=== PATIENT | male | born 1940 | race Caucasian/White ===

== ENCOUNTER 2017-09-18 13:35 | Inpatient (IN) ==
[2017-09-18] MEDS ORDERED: DUONEB NEB STA (13:40)
--- NOTE | 2017-09-18 13:56 | DI ---
EXAM: Two views of the chest. History: Cough, short of breath Findings: Heart size is upper limits of normal. Calcified granulomas seen within the thorax. Left lower lobe and lingular consolidation. No appreciable pleural fluid and no pneumothorax. No acute os seous abnormalities. Impression: Left lower lung pneumonia. Follow-up recommended.
--- NOTE | 2017-09-18 15:05 | ED.PDOC ---
General ED Provider: Dr. KATARZYNA JULIO Chief Complaint: Respiratory Complaint Stated Complaint: shortness of breath Time Seen by Physician: 13:39 Mode of Arrival: Walk-In Information Source: Patient Exam Limitations: No limitations Primary Care Provider: MELODY SHAW Nursing and Triage Documentation Reviewed and Agree: Yes Reviewed sepsis parameters & appropriate labs ordered?: Yes System Inflammatory Response Syndrome: Not Applicable Sepsis Protocol: For patient's 13 years and over: Temp is 96.8 and below OR 101 and greater Pulse >90 BPM Resp >20/minute Acutely Altered Mental Status Are patient's symptoms suggestive of a new infection, such as: -Pneumonia -Skin, Soft Tissue -Endocarditis -UTI -Bone, Joint Infection -Implantable Device -Acute Abdominal Infection -Wound Infection -Meningitis -Blood Stream Catheter Infection -Unknown Respiratory Complaint Exam - Respiratory Complaint/Exam Onset/Duration: 2 weeks Symptoms Are: Still present Timing: Intermittent Initial Severity: Moderate Current Severity: Mild Location: Nose, Throat, Chest Character: Reports: Non-productive cough, Dry cough Aggravating: Reports: Weather, Recumbent position Associated Signs and Symptoms: Reports: URI, Nasal congestion. Denies: Rapid breathing, Dyspnea, Fever, Chills, Chest pain, Pleuritic chest pain, Wheezing, Hemoptysis, Dizziness, Calf pain, Calf swelling, Edema, Hoarseness, Sinus discomfort, Vomiting, Sore throat, Weight loss, Decreased oral intake, Increased thirst, Increased appetite, Increased urination Related History: Reports: Similar episode History of Healthcare-Acquired Pneumonia: No Related Surgical History: Reports: None Pulmonary Embolism Risk Factors: Bedrest Cardiac Risk Factors: Reports: Elevated lipids (copd) Pseudomonas Risk Factors: Reports: Chronic Lung Disease Tuberculosis Risk Factors: Reports: Chronic Resp. Faliure Status Asthmaticus Risk Factors: Reports: None Home Oxygen Use: No Recent Stress Test: No Recent Echo/LV Function: No Current Antibiotic Use: No Current Asthma Medication Use: No Respiratory Distress: None Inadequate Respiratory Effort: No Dysphagia Present: No Stridor Present: No JVD Present: No Retractions: Not Present Diminished Breath Sounds: No Sinus Tenderness: None Grunting Respirations: No Kussmaul Respirations: No Differential Diagnoses: Pneumonia, Bronchitis, Lower Resp. Infection Review of Systems - Review Of Systems Constitutional: Reports: Chills, Malaise Eyes: Reports: No symptoms Ears, Nose, Mouth, Throat: Reports: No symptoms Respiratory: Reports: Cough, Short of air Cardiac: Reports: No symptoms GI: Reports: No symptoms : Reports: No symptoms Musculoskeletal: Reports: No symptoms Skin: Reports: No symptoms Neurological: Reports: No symptoms Endocrine: Reports: No symptoms Hematologic/Lymphatic: Reports: No symptoms All Other Systems: Reviewed and Negative Past Medical History - Past Medical History Previously Healthy: Yes Endocrine: Reports: Dyslipidemia Cardiovascular: Reports: None Respiratory: Reports: COPD Hematological: Reports: None Gastrointestinal: Reports: None Genitourinary: Reports: None Neuro/Psych: Reports: None Musculoskeletal: Reports: None Cancer: Reports: None - Surgical History General Surgical History: Reports: None - Family History Family History: Reports: None - Social History Smoking Status: Current every day smoker, Light tobacco smoker Hx Substance Use: No Alcohol Screening: None Physical Exam - Physical Exam Appearance: Ill-appearing Ill-appearing: Mild Eyes: VINNIE, EOMI, Conjunctiva clear ENT: Ears normal, Nose normal, Oropharynx normal Respiratory: Rhonchi, Wheezes Cardiovascular: RRR, Pulses normal, No rub, No murmur GI/: Soft, Nontender, No masses, Bowel sounds normal, No Organomegaly Musculoskeletal: Normal strength, ROM intact, No edema, No calf tenderness Skin: Warm, Dry, Normal color Neurological: Sensation intact, Motor intact, Reflexes intact, Cranial nerves intact, Alert, Oriented Psychiatric: Affect appropriate, Mood appropriate Interpretation - Radiology Interpretation Radiology Interpretation By: Radiologist Exam Interpreted: Other (LLL PNEUMONIA) - Oracle Application Architect Rate: Normal Rhythm: Sinus Ectopy: None - EKG Interpretation Rate: Normal Rhythm: Sinus Ectopy: None Widener: NL ST Segment: Normal Re-Evaluation - Re-Evaluation Time of Re-Evaluation: 15:00 (NO ACUTE RESP EVENT WHILE IN THE ED ) Status: Unchanged Vital Signs Stable: Yes Pain Level: 0 Appearance: NAD Lungs: Clear (RIGHT LEFT RONCHI NOTED BASES) Skin: Warm and Dry Neuro: Alert and Oriented X3 CV: RRR Critical Care Note - Critical Care Note Total Time (mins): 0 Course - Course Hematology/Chemistry: 09/18/17 13:50 09/18/17 13:50 Orders, Labs, Meds: Lab Review 09/18/17 09/18/17 09/18/17 13:50 13:50 13:50 WBC 11.54 H RBC 5.17 Hgb 16.1 Hct 47.4 MCV 91.7 MCH 31.1 H MCHC 34.0 RDW Coeff of Shaniqua 13.4 Plt Count 263 Neutrophils % (Manual) 57.0 Lymphocytes % (Manual) 26.0 Monocytes % (Manual) 10.0 Eosinophils % (Manual) 7.0 H Plt Morphology Comment Normal Anisocytosis Not present RBC Morph Comment Normal Puncture Site L rad O2 Saturation 87.0 L ABG pH 7.432 ABG pCO2 40.0 ABG pO2 52.0 L* ABG HCO3 26.7 H ABG Total CO2 28 ABG Base Excess 2 Rico Test + FiO2 % 21.0 Sodium 141 Potassium 4.3 Chloride 105 Carbon Dioxide 28 Anion Gap 12.3 BUN 19 H Creatinine 0.79 Estimated GFR (MDRD) 96.00 BUN/Creatinine Ratio 24.05 Glucose 87 Calcium 9.5 Total Bilirubin 1.6 H AST 18 ALT 12 Alkaline Phosphatase 90 Total Creatine Kinase 54 Troponin I < 0.0100 Total Protein 7.6 Albumin 3.3 L Globulin 4.3 Albumin/Globulin Ratio 0.77 Orders Category Date Time Status ABG DRAW REQUEST Stat CARDIO 09/18/17 13:40 Ordered EKG-(ED ONLY) Stat CARDIO 09/18/17 13:41 Ordered NEBULIZER TREATMENT Stat CARDIO 09/18/17 13:41 Ordered ABG Stat LAB 09/18/17 13:40 Ordered BLOOD CULTURE (ED ONLY) Stat LAB 09/18/17 Ordered CBC W/ AUTO DIFF Stat LAB 09/18/17 13:39 Ordered COMPREHENSIVE METABOLIC PANEL Stat LAB 09/18/17 13:39 Ordered CREATINE KINASE Stat LAB 09/18/17 13:39 Ordered MANUAL DIFFERENTIAL Stat LAB 09/18/17 13:50 Completed TROPONIN I Stat LAB 09/18/17 13:39 Ordered Ipratropium/Albuterol Neb [Duoneb] MEDS 09/18/17 13:40 Stat 1 vial NEB ONCE STA CHEST, 2 VIEWS PA & LAT Stat RADS 09/18/17 13:39 Ordered Medications Discontinued Medications Generic Name Dose Route Start Last Admin Trade Name Freq PRN Reason Stop Dose Admin Albuterol/Ipratropium 1 vial 09/18/17 13:40 09/18/17 13:55 Duoneb NEB 09/18/17 13:41 1 vial ONCE STA Administration Vital Signs: Temp Pulse Resp BP Pulse Ox 09/18/17 13:36 98.2 F 93 H 28 H 155/65 H 85 L Departure - Departure Time of Disposition: 15:05 Disposition: ADMITTED INPATIENT Discharge Problem: Pneumonia Qualifiers: Pneumonia type: due to unspecified organism Laterality: left Lung location: lower lobe of lung Qualified Code(s): J18.1 - Lobar pneumonia, unspecified organism Instructions: Pneumonitis (ED) Condition: Good Pt referred to PMD for follow-up: Yes IPMP verified?: No Additional Instructions: Please call your Family Physician as soon as possible to schedule a follow-up appointment. Allergies/Adverse Reactions: Allergies No Known Allergies Allergy (Verified 09/18/17 13:41) Home Medications: Ambulatory Orders Aspirin [Aspirin Chewable] 81 mg PO DAILYWM 09/18/17 Fluticasone/Vilanterol [Breo Ellipta 200-25 Mcg INH] 1 each IH DAILY 09/18/17 Lovastatin [Mevacor] 20 mg PO BEDTIME 09/18/17 Disposition Discussed With: Patient, Family (REPORTS OF CHEST XRAY GIVEN LABS AND OTHER DATA SHARED WITH PT AND HIS PMD NOTIFIED 3:11 PM)
[2017-09-18] MEDS ORDERED: LEVAQUIN 500 MG in PREMIX 100 ML D5W 1 BAG IV SCH (15:30)
[2017-09-18] MEDS ORDERED: ROCEPHIN 1 GM in SODIUM CHLORIDE 50 ML IV STA (15:34)
[2017-09-18] MEDS ORDERED: ROCEPHIN ONE (15:36)
[2017-09-18] MEDS: ROCEPHIN 1 GM in SODIUM CHLORIDE 50 ML IV SCH (16:27)
[2017-09-18] MEDS: DOXY-100 100 MG in SODIUM CHLORIDE 100 ML IV SCH ×2 (17:27→22:03)
[2017-09-18] MEDS: SODIUM CHLORIDE 1,000 ML IV SCH (17:27)
[2017-09-18] MEDS: DUONEB NEB SCH ×2 (18:26→22:33)
[2017-09-18] MEDS: MEVACOR PO SCH (22:03)
[2017-09-19] MEDS: DUONEB NEB SCH ×4 (04:40→23:35)
[2017-09-19] MEDS: MUCINEX PO SCH ×4 (06:27→20:31)
[2017-09-19] MEDS: SOLU-MEDROL 40 MG IVP SCH ×3 (06:27→21:18)
[2017-09-19] MEDS: ASPIRIN CHEWABLE PO SCH (08:35)
[2017-09-19] MEDS: ROCEPHIN 1 GM in SODIUM CHLORIDE 50 ML IV SCH (08:35)
[2017-09-19] MEDS: DOXY-100 100 MG in SODIUM CHLORIDE 100 ML IV SCH ×2 (09:34→20:33)
[2017-09-19] MEDS: SODIUM CHLORIDE 1,000 ML IV SCH (12:41)
[2017-09-19] MEDS: MEVACOR PO SCH (20:32)
[2017-09-19] MEDS: UMECLIDINIUM BROMIDE INH SCH (20:33)
[2017-09-20] MEDS: SODIUM CHLORIDE 1,000 ML IV SCH ×2 (03:38→17:55)
[2017-09-20] MEDS: DUONEB NEB SCH ×4 (05:10→20:05)
[2017-09-20] MEDS: SOLU-MEDROL 40 MG IVP SCH ×3 (07:58→21:58)
[2017-09-20] MEDS: ROCEPHIN 1 GM in SODIUM CHLORIDE 50 ML IV SCH (08:44)
[2017-09-20] MEDS: ASPIRIN CHEWABLE PO SCH (08:44)
[2017-09-20] MEDS: MUCINEX PO SCH ×2 (08:44→20:19)
[2017-09-20] MEDS: DOXY-100 100 MG in SODIUM CHLORIDE 100 ML IV SCH ×2 (09:56→20:19)
[2017-09-20] MEDS: UMECLIDINIUM BROMIDE INH SCH (20:18)
[2017-09-20] MEDS: MEVACOR PO SCH (20:19)
[2017-09-21] MEDS: DUONEB NEB SCH ×3 (05:40→14:23)
[2017-09-21] MEDS: ASPIRIN CHEWABLE PO SCH (08:55)
[2017-09-21] MEDS: ROCEPHIN 1 GM in SODIUM CHLORIDE 50 ML IV SCH (08:55)
[2017-09-21] MEDS: MUCINEX PO SCH (08:55)
[2017-09-21] MEDS: SOLU-MEDROL 40 MG IVP SCH (08:56)
[2017-09-21] MEDS: DOXY-100 100 MG in SODIUM CHLORIDE 100 ML IV SCH (09:55)
--- NOTE | 2017-09-21 13:55 | DI ---
EXAM: Two views of the chest. History: Follow-up pneumonia Comparison: Chest radiograph 09/18/2017 Findings: Heart size is stable. Calcified granulomas again seen within the thorax. The left lower lung consolidation is stable to minimally improved. No developing opacities. Left hilar prominence again noted. No acute osseous abnormalities. No pneumothorax. Impression: Left lower lung pneumonia is stable to minimally improved. Continued follow-up is recom mended.
--- NOTE | 2017-09-21 17:01 | CT ---
EXAM: CT chest without contrast. HISTORY: Cough, shortness of breath. COMPARISON: Radiograph earlier the same day. TECHNIQUE: Multiple axial images of the chest were obtained without intravenous contrast. Images we re reformatted in the sagittal and coronal planes. FINDINGS: Evaluation for lymphadenopathy is limited by lack of intravenous contrast. Subcarinal lym ph node measures up to 2.9 cm short axis on axial image 31. Left hilar soft tissue mass extends into the anterior left upper lobe and AP window with overall mass measuring approximately 12.3 x 6.2 cm o n axial image 29. This causes some slight mass effect on the trachea at the level of the jerzy, alt anish no endobronchial extension identified. Consolidation extends into the lingula A discrete 0.6 c m right lower lobe nodule noted on axial image 42. Mild dependent subsegmental atelectasis seen in t he posterior right lower lobe near the diaphragm. Severe emphysematous changes present. No pleural e ffusion or pneumothorax identified. Heart size is normal. Atherosclerotic calcifications present. No pericardial effusion identified. Limited images of the upper abdomen demonstrate no acute finding. No osteolytic or osteoblastic lesi ons seen. Degenerative changes present in the spine IMPRESSION: 1. Large left hilar soft tissue mass extending into the anteromedial left upper lobe and lingula and invading the mediastinum at the level of the AP window with some mass effect on the trachea near the jerzy. No dimas endobronchial extension. Findings represent neoplasm until proven otherwise. 2. Large subcarinal lymphadenopathy. 3. Right lower lobe micronodule which requires followup. 4. Severe emphysema.
[2017-09-21 17:40] VITALS: BP 132/71; TEMP 98
--- NOTE | 2017-09-22 06:58 | CONS ---
DATE OF SERVICE: 09/21/17 REASON FOR CONSULTATION/HISTORY: This is a pleasant 77-year-old gentleman with a history of being hospitalized with pneumonia. He has a history of smoking all of his life and is now down to approximately 1/2 pack a day. He feels as though food catches in his throat, relaxes and goes down. He say clinically it may be getting a little better since he had symptoms approximately 3 to 4 days ago. PHYSICAL EXAMINATION: HEENT: Ears are clear. Nose:: Normal mucosa. Mouth: Oropharynx reveals no lesions. Hypopharnyx reveals good movement of vocal cords. NECK: Supple. IMPRESSION: I feel this probably represents cricopharyngeus muscle spasm. RECOMMENDATIONS: Since this is getting better clinically, I suggest possibly conservative management. Also suggested considering Librax one t.i.d. for dysphagia. Return to the [facility] in two to three weeks and I will use a flexible scope to look at his vocal cords I feel this does not represent a major problem at this time and hopefully when he gets over his pneumonia, his symptoms will resolve. LIEN
== END 2017-09-21 19:00 | disposition short-term general hospital (02) | DRG 193 ==
LOC: ED 13:35 → MEDSURG B 15:18
PROVIDERS: ADMIT Family Medicine; ATTEND Family Medicine
DX: J18.1 Lobar pneumonia, unspecified organism (principal); J96.00 Acute respiratory failure, unspecified whether with hypoxia or hypercapnia; D49.1 Neoplasm of unspecified behavior of respiratory system; J44.9 Chronic obstructive pulmonary disease, unspecified; R91.8 Other nonspecific abnormal finding of lung field; Z72.0 Tobacco use
CPT/HCPCS: 36415; 80053; 82550; 82803; 84484; 85007; 85025; 87040; 93005; 93010; 94640; 96365; 99221; 99284

== ENCOUNTER 2017-09-21 19:06 | Outpatient (CLI) | payer OTHER | END 2017-09-21 19:27 | disposition short-term general hospital (02) | LOC: AMBL 19:06 | PROVIDERS: ATTEND Family Medicine | DX: J18.9 Pneumonia, unspecified organism (principal); Z99.81 Dependence on supplemental oxygen ==